=== PATIENT | female | born 1975 | race Caucasian/White ===

== ENCOUNTER 2016-09-22 19:33 | Emergency (ER) | payer MEDICAID ==
[~2016-09-22] VITALS: Ht 157.5 cm; Wt 80.5 kg
[~2016-09-22 19:33] MED LIST: DEXT15SY5 PO; PREN-39 PO; PREN1TAB12 PO; TYL500 PO
[2016-09-22 19:44] VITALS: Ht 157.5 cm; Wt 80.5 kg
[2016-09-22] MEDS ORDERED: IBUPROFEN 800 MG TAB PO ONE (20:00)
[2016-09-22] MEDS ORDERED: IBUP-1542 PO (20:27)
--- NOTE | 2016-09-22 20:29 | RADRPT ---
PROCEDURE: XR Chest. CLINICAL INDICATION: Chest pain. TECHNIQUE: Single frontal view. COMPARISON: None. FINDINGS: The lungs are clear. The heart size is normal. There is no pleural effusion. There is no pneumothorax. IMPRESSION: 1. Normal chest radiograph. RPTAT: QQ .Hong Rm MD, Date Time Electronically viewed and signed by .Hong Rm MD, on 09/22/2016 20:29 .R/
--- NOTE | 2016-09-22 20:30 | ERD ---
ER Documentation Chief Complaint Date/Time DATE: 09/22/16 TIME: 20:28 Chief Complaint Right side CWP with arm pain HPI Patient is a 40-year-old female with no medical problems who presents with chest pain. She has chest pain which she describes it as midsternal and right- sided breast pain. She has had this for 4 days and it is been coming and going. She tried Tylenol. She has had no fevers and no cough. Upon review of old medical records this is the patient's fifth visit to the ER since 2011. She does not know the name of her primary doctor. ROS All systems reviewed and are negative except as per history of present illness. Medications Home Meds Active Scripts Ibuprofen* (Motrin*) 600 Mg Tab, 600 MG PO Q6H Y for PAIN AND OR ELEVATED TEMP, #30 TAB Prov:JESSICA LUCIANO MD 09/22/16 Reported Medications Vit/Fe Fumarate/Fa ( 1-1 Tablet) 1 Tab Tablet, 1 TAB PO DAILY 09/18/12 Dextromethorphan Hbr (Tussin) 15 Mg/5 Ml Syrup, 15 MG PO 08/29/12 Acetaminophen (Acetaminophen) 500 Mg Tab, 500 MG PO Q4H PRN 08/29/12 Vits W-Ca,Fe,Fa(<1MG) ( Vitamins) 1 Tab Tablet, 1 TAB PO DAILY 08/29/12 Allergies Allergies: Coded Allergies: No Known Allergy (Unverified , 08/29/12) PMhx/Soc History of Surgery: No Anesthesia Reaction: No Hx Neurological Disorder: No Hx Respiratory Disorders: No Hx Cardiac Disorders: No Hx Psychiatric Problems: No Hx Miscellaneous Medical Probl: Yes (PRE-DIABETES) Hx Alcohol Use: No Hx Substance Use: No Hx Tobacco Use: No Smoking Status: Never smoker FmHx Family History: No coronary disease Physical Exam Vitals Vital Signs Date Time Temp Pulse Resp B/P Pulse Ox O2 Delivery O2 Flow Rate FiO2 09/22/16 19:44 98.0 77 18 114/70 98 Physical Exam Const: No acute distress Head: Atraumatic Eyes: Normal Conjunctiva ENT: Normal External Ears, Nose and Mouth. Neck: Full range of motion..~ No meningismus. Resp: Clear to auscultation bilaterally Cardio: Regular rate and rhythm, no murmurs, chest wall pain with palpation Abd: Soft, non tender, non distended. Normal bowel sounds Skin: No petechiae or rashes Back: No midline or flank tenderness Ext: No cyanosis, or edema Neur: Awake and alert Psych: Normal Mood and Affect Results 24 hrs Current Medications Medications (Trade) Dose Ordered Sig/Jasmine Route PRN Reason Start Time Stop Time Status Last Admin Dose Admin Ibuprofen (Motrin) 800 mg ONCE ONCE PO 09/22/16 20:00 09/22/16 20:01 DC 09/22/16 20:09 Procedures/MDM EKG read by me: Rate/Rhythm: Regular rate and rhythm at a rate of 67 Intervals: Normal Impression: No evidence of ischemia or arrhythmia Chest X-ray 1V Interpreted by me: Soft Tissue: No acute abnormalities Bones: No acute abnormalities Mediastinum/Cardiac Silhouette/Lungs: No acute abnormalities Patient is a 40-year-old female presents with chest pain and right-sided breast pain. There is no sign of rash. She does have chest wall pain with palpation. At this point I doubt pneumonia, pneumothorax, pulmonary embolism, or aortic dissection. I believe outpatient management is appropriate. The patient was given ibuprofen for pain. She can return for any worsening symptoms. I do believe she needs close follow-up within 48 hours for recheck and I will give her information for the local clinics so that she contain a primary doctor. Departure Diagnosis: Primary Impression: Chest pain Chest pain type: unspecified Qualified Code: R07.9 - Chest pain, unspecified type Condition: Fair Patient Instructions: Chest Pain, Uncertain Cause [facility] Usted se schrader hecho un examen mdico de control que le indica que no est en janel condicin que requiera tratamiento urgente en el Departamento de Emergencia. Un estudio ms profundo y el tratamiento de golden condicin pueden esperar sin ningn riesgo hasta que usted sea atendida/o en el consultorio de golden mdico o janel cl shakir. Es responsabilidad suya arreglar janel melinda para el seguimiento del qing. MANEJO DE CONDICIONES NO URGENTES EN EL FUTURO 1) Si usted tiene un mdico de atencin primaria: Usted debera llamar a golden mdico de atencin primaria antes de venir al departamento de emergencia. Despus de las horas de consultorio, golden doctor o golden asociado/a est disponible por telfono. El mdico o enfermero de luis en el servicio telefnico puede asesorarle por noemí medio para atender el problema, o qing contrario se puede programar janel melinda. 2) Si usted no tiene un mdico de atencin primaria: Llame al mdico o clnica de referencia que aparece abajo kd las horas de consultorio para hacer janel melinda para que le vean. CLINICAS: [place] [phone] [facility] [address] [facility] [phone] [facility] [place] [phone] [facility]. [place] [phone] [facility] [place] [address] [phone] [facility] [phone] [address] Additional Instructions: Llame al doctor MAANA y kwadwo janel MELINDA PARA DENTRO DE 1-2 BLANCHARD.Dgale a la secretaria que nosotros le instruimos hacer esta melinda.Avise o llame si golden condicin se empeora antes de la melinda. Regresa aqui si peor o no mejor. JESSICA LUCIANO MD Sep 22, 2016 20:30
== END 2016-09-22 21:02 | disposition home or self-care (01) ==
LOC: E/R 19:33
DX: R07.89 Other chest pain (principal)
CPT/HCPCS: 71010; Z7502; Z7610; 93005

== ENCOUNTER 2017-03-17 17:47 | Emergency (ER) | payer MEDICAID ==
[~2017-03-17] VITALS: Ht 157.5 cm; Wt 78.7 kg
[~2017-03-17 17:47] MED LIST changes: -DEXT15SY5 PO; +DEXT15SY9 PO; +IBUP-1542 PO
[2017-03-17 17:50] VITALS: Ht 157.5 cm; Wt 78.7 kg
[2017-03-17] MEDS ORDERED: KETOROLAC 30 MG INJ IM STA (18:56)
[2017-03-17] MEDS ORDERED: IBUP-1542 PO (18:59)
[2017-03-17] MEDS ORDERED: CYCL-319 PO (19:06)
[2017-03-17 19:18] LABS: URINE BLOOD (Dip) POC Trace-intact (NEGATIVE)
--- NOTE | 2017-03-17 20:49 | ERD ---
ER Documentation Chief Complaint Date/Time DATE: 03/17/17 TIME: 20:47 Chief Complaint back pain HPI 41-year-old female presents to the emergency department complaining of bilateral buttock back pain that radiates down her posterior legs bilaterally for the past 3 days. Patient rates the pain moderate in severity. She denies any fevers, saddle anesthesia, bladder or bowel incontinence. She has not tried any medications. Denies dysuria ROS All systems reviewed and are negative except as per history of present illness. Medications Home Meds Active Scripts Cyclobenzaprine Hcl* (Cyclobenzaprine Hcl*) 10 Mg Tablet, 10 MG PO TID, #30 TAB Prov:RAGHAVENDRA HARMON PA-C 03/17/17 Ibuprofen* (Ibuprofen*) 600 Mg Tablet, 600 MG PO Q6H, #30 TAB Prov:RAGHAVENDRA HARMON PA-C 03/17/17 Ibuprofen* (Motrin*) 600 Mg Tab, 600 MG PO Q6H Y for PAIN AND OR ELEVATED TEMP, #30 TAB Prov:JESSICA LUCIANO MD 09/22/16 Reported Medications Vit/Fe Fumarate/Fa ( 1-1 Tablet) 1 Tab Tablet, 1 TAB PO DAILY 09/18/12 Dextromethorphan Hbr (Tussin) 15 Mg/5 Ml Syrup, 15 MG PO 08/29/12 Acetaminophen (Acetaminophen) 500 Mg Tab, 500 MG PO Q4H PRN 08/29/12 Vits W-Ca,Fe,Fa(<1MG) ( Vitamins) 1 Tab Tablet, 1 TAB PO DAILY 08/29/12 Allergies Allergies: Coded Allergies: No Known Allergy (Unverified , 08/29/12) PMhx/Soc Medical and Surgical Hx: pt denies Medical Hx, pt denies Surgical Hx History of Surgery: No Anesthesia Reaction: No Hx Neurological Disorder: No Hx Respiratory Disorders: No Hx Cardiac Disorders: No Hx Psychiatric Problems: No Hx Miscellaneous Medical Probl: No Hx Alcohol Use: No Hx Substance Use: No Hx Tobacco Use: No Smoking Status: Never smoker Physical Exam Vitals Vital Signs Date Time Temp Pulse Resp B/P Pulse Ox O2 Delivery O2 Flow Rate FiO2 03/17/17 17:50 98.1 83 18 114/61 99 Physical Exam Const: [] Head: Atraumatic Eyes: Normal Conjunctiva ENT: Normal External Ears, Nose and Mouth. Neck: Full range of motion..~ No meningismus. Resp: Clear to auscultation bilaterally Cardio: Regular rate and rhythm, no murmurs Abd: Soft, non tender, non distended. Normal bowel sounds Skin: No petechiae or rashes Back: Positive straight leg raise bilaterally, tender to palpation in the buttocks region bilaterally range of motion pain with range of motion Ext: No cyanosis, or edema Neur: Awake and alert Psych: Normal Mood and Affect Results 24 hrs Laboratory Tests Test 03/17/17 19:25 Bedside Urine pH (LAB) 6.5 Bedside Urine Protein (LAB) Trace Bedside Urine Glucose (UA) Negative Bedside Urine Ketones (LAB) Negative Bedside Urine Blood Trace-intact Bedside Urine Nitrite (LAB) Negative Bedside Urine Leukocyte Esterase (L Negative Current Medications Medications (Trade) Dose Ordered Sig/Jasmine Route PRN Reason Start Time Stop Time Status Last Admin Dose Admin Ketorolac Tromethamine (Toradol) 30 mg ONCE STAT IM 03/17/17 18:56 03/17/17 18:58 DC 03/17/17 19:25 Procedures/MDM -year-old female presents to the emergency department complaining of bilateral buttock back pain that radiates down her legs bilaterally which is most consistent with sciatica. There was no evidence of cauda equina, spinal abscess or any neuro deficits. Patient appears well and stable to be discharged home to follow-up with primary care physician for possible physical therapy referral. In the ED patient was given Toradol. Prescription for ibuprofen and Flexeril was provided. Discussed return to the ER if not improving as expected or for any worsening signs or symptoms. She understands this plan Departure Diagnosis: Primary Impression: Sciatica Condition: Stable Patient Instructions: Understanding Sciatica, Back Pain W/ Sciatica Referrals: NO PRIMARY,CARE PHYSICIAN (PCP) Additional Instructions: Visite a golden layo le para un EXAMEN.Regrese a estas instalaciones si no se mejora joe esperbamos o joe le dijimos. [place] toda la medicina yanni y joe se le indic. Regrese a estas instalaciones si no se mejora joe esperbamos o joe le dijimos. La medicina que se le recet puede causarle sueo.NO DEBE MANEJAR NI OPERAR MAQUINARIAS PELIGROSAS mientras esta tomando esta medicina! RAGHAVENDRA HARMON PA-C Mar 17, 2017 20:49
== END 2017-03-17 20:13 | disposition home or self-care (01) ==
LOC: FTE 17:47
DX: M54.42 Lumbago with sciatica, left side (principal); M54.41 Lumbago with sciatica, right side
CPT/HCPCS: 81003; 96372; J1885; Z7502

== ENCOUNTER 2018-05-26 15:14 | Emergency (ER) | END 2018-05-26 17:42 | disposition home or self-care (01) ==

== ENCOUNTER 2018-06-16 03:30 | Emergency (ER) | END 2018-06-16 05:55 | disposition home or self-care (01) ==

== ENCOUNTER 2019-02-13 15:56 | Inpatient (IN) | payer MEDICAID ==
[~2019-02-13] VITALS: Ht 160 cm; Wt 78.2 kg
[~2019-02-13 15:56] MED LIST changes: +ACET500C5 PO; +AMOX1TAB10 PO; +BACITUD TOP; +CYCL10TA7 PO; +ONDA4TAB14 ODT; +ONDA4TAB14 PO; +OXYC-438 PO; +SACC250C PO; +TRAM50TA2 PO
[2019-02-13] MEDS ORDERED: morphine 4 MG/ML VIAL IV STA (16:37)
[2019-02-13] MEDS ORDERED: SOD CHLORIDE 0.9% 1,000 ML IV STA (16:37)
[2019-02-13] MEDS ORDERED: ONDANSETRON 4 MG INJ IV STA (16:37)
[2019-02-13] MEDS ORDERED: ACETAMINOPHEN 325 MG TAB PO PRN ×2 (17:00)
[2019-02-13] MEDS ORDERED: ONDANSETRON 4 MG INJ IV PRN ×3 (17:00→17:30)
[2019-02-13] MEDS ORDERED: NACL 0.9% 3 ML SYG IV SCH (17:30)
[2019-02-13] MEDS ORDERED: HYDROCODONE/APAP (5/325) TAB PO PRN (17:30)
[2019-02-13 20:00] VITALS: BP 131/91; PULSE 75; RESP 18
[2019-02-13] MEDS: PIPER-TAZO 3.375 GM IV (PMX) 100 ML IVPB SCH (20:03)
[2019-02-13] MEDS: SOD CHLORIDE 0.9% 1,000 ML IV SCH (20:03)
[2019-02-13 20:23] VITALS: Ht 160 cm; Wt 78.2 kg
[2019-02-13] MEDS: morphine 2 MG INJ IV PRN (21:31)
[2019-02-13] MEDS: ACETAMINOPHEN 325 MG TAB PO PRN (23:59)
[2019-02-14] VITALS (19 sets, daily range): BP systolic 111–128; BP diastolic 56–69; PULSE 84–104; RESP 12–24
[2019-02-14] MEDS: PIPER-TAZO 3.375 GM IV (PMX) 100 ML IVPB SCH ×5 (00:32→23:54)
[2019-02-14] MEDS: morphine 2 MG INJ IV PRN ×5 (02:36→19:58)
[2019-02-14] MEDS: SOD CHLORIDE 0.9% 1,000 ML IV SCH ×3 (03:30→23:52)
[2019-02-14] MEDS ORDERED: EPHEDrine 25 MG/5 ML SYG IV PRN (08:00)
[2019-02-14] MEDS ORDERED: FENTAnyl 50 MCG/ML VIAL IV PRN ×3 (08:00)
[2019-02-14] MEDS ORDERED: DIPHENHYDRAMINE 50 MG INJ IV PRN (08:00)
[2019-02-14] MEDS ORDERED: LABETALOL HCL 20MG INJ IV PRN (08:00)
[2019-02-14] MEDS ORDERED: hydrALAzine 20 MG INJ IV PRN (08:00)
[2019-02-14] MEDS ORDERED: ONDANSETRON 4 MG INJ IV PRN (08:00)
[2019-02-14] MEDS ORDERED: OXYCODONE/ACETAMINOPHEN (5/325) TAB PO PRN ×2 (08:00)
[2019-02-14] MEDS ORDERED: ALBUTEROL 0.083% (NEB) 2.5 MG/3 ML AMP HHN PRN (08:00)
[2019-02-14] MEDS ORDERED: TRIMETHOBENZAMIDE 100 MG/ML VIAL IM PRN (08:00)
[2019-02-14] MEDS ORDERED: HYDROmorphONE 1 MG/5 ML IV SYRINGE IV PRN ×2 (08:00)
[2019-02-14] MEDS ORDERED: IPRATROPIUM (NEB) 0.5 MG/2.5 ML AMP HHN PRN (08:00)
[2019-02-14] MEDS ORDERED: MIDAZOLAM 1 MG/ML 2 ML INJ IV PRN (08:00)
[2019-02-14] MEDS ORDERED: MEPERIDINE 25 MG INJ IV PRN (08:00)
[2019-02-14] MEDS ORDERED: FENTAnyl 50 MCG/ML VIAL ONE ×2 (09:04→09:36)
[2019-02-14] MEDS ORDERED: MIDAZOLAM 1 MG/ML 2 ML INJ ONE (09:04)
[2019-02-14] MEDS ORDERED: GLYCOPYRROLATE 0.4 MG INJ ONE (09:04)
[2019-02-14] MEDS ORDERED: PROPOFOL 20 ML ONE (09:04)
[2019-02-14] MEDS ORDERED: CEFAZOLIN 1 GM INJ ONE (09:04)
[2019-02-14] MEDS ORDERED: NEOSTIGMINE 3 MG/3 ML SYRINGE ONE (09:04)
[2019-02-14] MEDS ORDERED: ROCURONIUM 50 MG INJ ONE (09:04)
[2019-02-14] MEDS ORDERED: ONDANSETRON 4 MG INJ ONE (09:05)
[2019-02-14] MEDS ORDERED: DEXAMETHASONE 4 MG/ML 5 ML INJ ONE (09:05)
[2019-02-14] MEDS ORDERED: BUPIVACAINE 0.25%/EPI (SDV) 10 ML INJ ONE (09:38)
[2019-02-14] MEDS ORDERED: SUGAMMADEX SODIUM 200 MG/2 ML VIAL IV ONE (10:03)
[2019-02-14] MEDS ORDERED: morphine 2 MG INJ IV PRN (10:30)
[2019-02-14] MEDS: HYDROmorphONE 1 MG/5 ML IV SYRINGE IV PRN ×2 (10:45→10:50)
[2019-02-14] MEDS: ONDANSETRON 4 MG INJ IV PRN (11:51)
[2019-02-14] MEDS: OXYCODONE/ACETAMINOPHEN (5/325) TAB PO PRN ×3 (14:33→22:27)
[2019-02-14] MEDS ORDERED: ONDANSETRON (ODT) 4 MG TAB ODT PRN (15:00)
[2019-02-15] MEDS: morphine 2 MG INJ IV PRN ×3 (01:43→22:30)
[2019-02-15] MEDS: OXYCODONE/ACETAMINOPHEN (5/325) TAB PO PRN ×3 (02:44→12:02)
[2019-02-15] MEDS: SOD CHLORIDE 0.9% 1,000 ML IV SCH (02:45)
[2019-02-15] MEDS: PIPER-TAZO 3.375 GM IV (PMX) 100 ML IVPB SCH ×4 (06:40→23:23)
[2019-02-15 06:46] VITALS: BP 96/51; PULSE 86; RESP 15
[2019-02-15 14:13] VITALS: BP 97/53; PULSE 87; RESP 15
[2019-02-15 20:30] VITALS: BP 113/64; PULSE 86; RESP 18
[2019-02-16] VITALS (23 sets, daily range): BP systolic 110–131; BP diastolic 56–73; PULSE 84–107; RESP 16–20
[2019-02-16] MEDS: PIPER-TAZO 3.375 GM IV (PMX) 100 ML IVPB SCH ×3 (05:08→19:25)
[2019-02-16] MEDS: morphine 2 MG INJ IV PRN (05:08)
[2019-02-16] MEDS ORDERED: POTASSIUM CHLORIDE (SR) 20 MEQ TAB PO STA (09:04)
[2019-02-16] MEDS ORDERED: INDOMETHACIN 50 MG SUPP PR STA (12:20)
[2019-02-16] MEDS ORDERED: POTASSIUM CHLORIDE 100 ML IVPB SCH (12:30)
[2019-02-16] MEDS ORDERED: IOHEXOL 300MG/ML 30 ML BTL ONE (12:44)
[2019-02-16] MEDS ORDERED: LIDOCAINE 2% (SDV) 5 ML INJ ONE (13:20)
[2019-02-16] MEDS ORDERED: ROCURONIUM 50 MG INJ ONE (13:20)
[2019-02-16] MEDS ORDERED: SUCCINYLCHOLINE CHLORIDE 100 MG/5 ML SYG IV ONE (13:20)
[2019-02-16] MEDS ORDERED: GLYCOPYRROLATE 0.4 MG INJ ONE (13:20)
[2019-02-16] MEDS ORDERED: NEOSTIGMINE 3 MG/3 ML SYRINGE ONE (13:20)
[2019-02-16] MEDS ORDERED: PROPOFOL 20 ML ONE (13:20)
[2019-02-16] MEDS ORDERED: SEVOFLURANE 15 MIN ONE (13:20)
[2019-02-16] MEDS ORDERED: MIDAZOLAM 1 MG/ML 2 ML INJ IV PRN (15:00)
[2019-02-16] MEDS ORDERED: HYDROmorphONE 1 MG/5 ML IV SYRINGE IV PRN ×3 (15:00)
[2019-02-16] MEDS ORDERED: FENTAnyl 50 MCG/ML VIAL IV PRN ×3 (15:00)
[2019-02-16] MEDS ORDERED: DIPHENHYDRAMINE 50 MG INJ IV PRN (15:00)
[2019-02-16] MEDS ORDERED: METOCLOPRAMIDE 10 MG INJ IV PRN (15:00)
[2019-02-16] MEDS ORDERED: MEPERIDINE 25 MG INJ IV PRN (15:00)
[2019-02-16] MEDS ORDERED: ONDANSETRON 4 MG INJ IV PRN (15:00)
[2019-02-16] MEDS: OXYCODONE/ACETAMINOPHEN (5/325) TAB PO PRN (20:32)
[2019-02-17 00:35] VITALS: BP 109/63; PULSE 98; RESP 18
[2019-02-17] MEDS: PIPER-TAZO 3.375 GM IV (PMX) 100 ML IVPB SCH ×4 (01:01→18:01)
[2019-02-17] MEDS: OXYCODONE/ACETAMINOPHEN (5/325) TAB PO PRN ×5 (01:29→20:27)
[2019-02-17 07:25] VITALS: BP 108/67; PULSE 90; RESP 18
[2019-02-17 14:00] VITALS: BP 115/69; PULSE 81; RESP 18
[2019-02-17] MEDS: ONDANSETRON 4 MG INJ IV PRN (15:20)
[2019-02-17 20:10] VITALS: BP 123/72; PULSE 90; RESP 18
[2019-02-17] MEDS: HEPARIN 5,000 UNIT/1 ML VIAL SC SCH (20:36)
[2019-02-17] MEDS: morphine 2 MG INJ IV PRN (21:02)
[2019-02-17] MEDS: ACETAMINOPHEN 325 MG TAB PO PRN (22:46)
[2019-02-18] MEDS: PIPER-TAZO 3.375 GM IV (PMX) 100 ML IVPB SCH ×5 (01:02→23:48)
[2019-02-18 01:48] VITALS: BP 120/67; PULSE 92; RESP 18
[2019-02-18] MEDS: OXYCODONE/ACETAMINOPHEN (5/325) TAB PO PRN ×4 (01:58→23:49)
[2019-02-18 07:33] VITALS: BP 114/71; PULSE 80; RESP 18
[2019-02-18] MEDS: HEPARIN 5,000 UNIT/1 ML VIAL SC SCH ×2 (08:46→21:00)
[2019-02-18] MEDS: morphine 2 MG INJ IV PRN (12:37)
[2019-02-18 15:22] VITALS: BP 130/87; PULSE 88; RESP 16
[2019-02-18 19:52] VITALS: BP 114/70; PULSE 77; RESP 18
[2019-02-19 01:48] VITALS: BP 122/72; PULSE 86; RESP 18
[2019-02-19] MEDS: ONDANSETRON 4 MG INJ IV PRN (03:20)
[2019-02-19] MEDS: PIPER-TAZO 3.375 GM IV (PMX) 100 ML IVPB SCH ×3 (05:21→18:02)
[2019-02-19 07:11] VITALS: BP 116/70; PULSE 90; RESP 17
[2019-02-19] MEDS: HEPARIN 5,000 UNIT/1 ML VIAL SC SCH ×2 (09:03→20:45)
[2019-02-19] MEDS: OXYCODONE/ACETAMINOPHEN (5/325) TAB PO PRN ×3 (09:10→22:07)
[2019-02-19 13:56] VITALS: BP 110/58; PULSE 83; RESP 18
[2019-02-19 19:05] VITALS: BP 107/68; PULSE 81; RESP 20
[2019-02-20] MEDS: PIPER-TAZO 3.375 GM IV (PMX) 100 ML IVPB SCH ×4 (00:06→18:22)
[2019-02-20 02:15] VITALS: BP 107/58; PULSE 68; RESP 20
[2019-02-20] MEDS: OXYCODONE/ACETAMINOPHEN (5/325) TAB PO PRN ×3 (03:59→21:03)
[2019-02-20 07:17] VITALS: BP 113/63; PULSE 84; RESP 18
[2019-02-20] MEDS: HEPARIN 5,000 UNIT/1 ML VIAL SC SCH ×2 (09:22→21:12)
[2019-02-20 19:20] VITALS: BP 112/65; PULSE 78; RESP 18
[2019-02-21] MEDS: PIPER-TAZO 3.375 GM IV (PMX) 100 ML IVPB SCH ×4 (00:32→18:00)
[2019-02-21 02:00] VITALS: BP 108/63; PULSE 88; RESP 18
[2019-02-21] MEDS: OXYCODONE/ACETAMINOPHEN (5/325) TAB PO PRN ×3 (05:46→18:05)
[2019-02-21 07:46] VITALS: BP 107/56; PULSE 80; RESP 18
[2019-02-21] MEDS: HEPARIN 5,000 UNIT/1 ML VIAL SC SCH (09:02)
[2019-02-21 14:50] VITALS: BP 113/63; PULSE 72; RESP 18
== END 2019-02-21 18:31 | disposition home health service (06) | DRG 419 ==
LOC: E/R 15:56 → 6WM 16:53 → MS1 02-15 02:13 → OBSVTOIN 02-15 09:34 → MS1 02-18 19:30
PROVIDERS: ADMIT Internal Medicine; ATTEND Internal Medicine
PROC: 0FT44ZZ Resection of Gallbladder, Percutaneous Endoscopic Approach (ICD-10-PCS; principal; 2019-02-14 11:30)
PROC: 0F798DZ Dilation of Common Bile Duct with Intraluminal Device, Via Natural or Artificial Opening Endoscopic (ICD-10-PCS; 2019-02-16)
PROC: BF10YZZ Fluoroscopy of Bile Ducts using Other Contrast (ICD-10-PCS; 2019-02-16)
DX: K80.12 Calculus of gallbladder with acute and chronic cholecystitis without obstruction (principal); D64.9 Anemia, unspecified; R10.9 Unspecified abdominal pain; E87.6 Hypokalemia; R10.11 Right upper quadrant pain; E66.9 Obesity, unspecified; Z68.30 Body mass index [BMI] 30.0-30.9, adult; Z71.3 Dietary counseling and surveillance
CPT/HCPCS: 36415; 71045; 74176; 74330; 76700; 76705; 78226; 80048; 80053; 80061; 80076; 81001; 81025; 83036; 83690; 83735; 84100; 84484; 85025; 85610; 85730; 86850; 86900; 86901; 87086; 88304; 93005; 99217; G0378; A9537; C2617; J0690; J1100; J1170; J1644; J2250; J2270; J2405; J2543; J2710; J2765; J3010; J3480; J7030; Q9967

== ENCOUNTER 2019-03-13 16:55 | Emergency (ER) | payer MEDICAID ==
[~2019-03-13] VITALS: Ht 165.1 cm; Wt 73.5 kg
[~2019-03-13 16:55] MED LIST changes: -ACET500C5 PO; -DEXT15SY9 PO; -ONDA4TAB14 PO; -PREN-39 PO; -TRAM50TA2 PO
[2019-03-13 17:06] VITALS: Ht 165.1 cm; Wt 73.5 kg
[2019-03-13] MEDS ORDERED: HYDROmorphONE 1 MG/ML SYG IV STA (17:37)
[2019-03-13] MEDS ORDERED: SOD CHLORIDE 0.9% 1,000 ML IV STA (17:37)
[2019-03-13] MEDS ORDERED: ONDANSETRON 4 MG INJ IV STA (17:37)
[2019-03-13] MEDS ORDERED: SOD CHLORIDE 0.9% 100 ML ONE (18:42)
[2019-03-13] MEDS ORDERED: IOHEXOL 300MG/ML 150 ML BTL ONE (18:42)
[2019-03-13 20:42] VITALS: BP 112/75; PULSE 72; RESP 16
== END 2019-03-13 20:43 | disposition home or self-care (01) ==
LOC: E/R 16:55
DX: L03.311 Cellulitis of abdominal wall (principal)
CPT/HCPCS: 74177; 80048; 81001; 83690; 84703; 85025; 96374; 96375; J1170; J2405; J7030; Q9967; Z7502; Z7610